=== PATIENT | male | born 1985 | race Caucasian/White ===

== ENCOUNTER 2020-05-15 09:22 | Emergency (ER) | payer SELFPAY ==
--- NOTE | 2020-05-15 09:45 | ED.UPPEXIN ---
HPI - Extremity Injury (Upper) General Stated Complaint: cough/headache/nausea Source: patient Mode of arrival: ambulatory Limitations: no limitations History of Present Illness HPI narrative: Patient is a 34-year-old male who presents complaining of cough, congestion, rhinorrhea, headache and nausea x3 to 4 days. Patient reports he lives with his aunt, who was diagnosed with Covid yesterday. Patient reports he just recently moved to the area and does not have PCP. He denies chest pain, shortness of breath or fever. He denies taking any [id number] medications for symptom relief. Related Data Home Medications Medication Instructions Recorded Confirmed No Home Medications 05/15/20 05/15/20 Allergies Allergy/AdvReac Type Severity Reaction Status Date / Time No Known Allergies Allergy Mild Verified 05/15/20 09:52 Review of Systems Review of Systems: Narrative: CONSTITUTIONAL: Denies fever, chills, or sweats. EYES: Denies visual changes, redness, or discharge. ENT: Denies rhinorrhea, sore throat, or otalgia. Reports congestion CARDIOVASCULAR: Denies chest pain, palpitations, or edema. RESPIRATORY: Reports cough, denies dyspnea. GASTROINTESTINAL: Denies abdominal pain, nausea, vomiting, or diarrhea. GENITOURINARY: Denies dysuria or hematuria. SKIN: Denies rash or itching. MUSCULOSKELETAL: Denies back pain, joint pain, or myalgia. NEUROLOGIC: Denies headache, numbness, dizziness, or weakness. PSYCHIATRIC: Denies anxiety or depression. PMFSH Past Medical History Medical History No significant past medical history Surgical History Surgical History No significant past surgical history Family History Family History Other Heart disease Social History Social History Smoking status: Current every day smoker Tobacco type: cigarettes Alcohol intake: current Alcohol use details: Occasional Substance use: current Substance use type: marijuana Living arrangements: with family Occupation/Education: occupation Exam Narrative: Exam Narrative: GENERAL: Well-appearing, well-nourished, and in no acute distress. HEAD: Normocephalic, atraumatic. EYES: No redness or drainage. ENT: Mucous membranes pink and moist. CHEST: No respiratory distress. Clear to auscultation. HEART: Regular rate and rhythm. No murmur appreciated. Normal peripheral pulses. EXTREMITIES: Normal range of motion. SKIN: Warm, dry, no rash. NEURO: No focal deficits. Alert and oriented x3. Gait steady. PSYCH: Normal affect. No signs of depression or anxiety. MDM - Extremity Injury (Upper) MDM Narrative Medical decision making narrative: Patient is positive exposure with an in household family member to Covid. Patient to be sent for Covid testing. Patient is aware of the need of quarantine until testing completed. Patient agrees with plan of care. Patient is stable for discharge home with outpatient follow-up as needed. Differential Diagnosis Differential diagnosis: Likely other (Upper respiratory infection, Covid) Critical Care Time Critical Care Time Critical Care Time: No Discharge Plan Discharge Clinical Impression: Close exposure to COVID-19 virus URI (upper respiratory infection) Qualifiers: URI type: unspecified viral URI Qualified Code(s): J06.9 - Acute upper respiratory infection, unspecified Patient Disposition: Home, Self-Care Condition: Stable Instructions: Droplet Precautions (ED), COVID-19 (Coronavirus Disease 2019) (ED), COVID-19: Slow the Coronavirus Spread (ED), Face Coverings (Masks) and COVID-19 (ED) Additional Instructions: You have an referred for Covid testing. Someone will call you within 24 hours to set up testing time. Please quarantine until Covid testing a
[2020-05-15 09:49] VITALS: BP 123/95; PULSE 65; RESP 16; TEMP 36.6; O2SAT 96
== END 2020-05-15 10:00 | disposition home or self-care (01) ==
PROVIDERS: Emergency Provider Nurse Practitioner
DX: Z20.828 Contact with and (suspected) exposure to other viral communicable diseases (principal); J06.9 Acute upper respiratory infection, unspecified; F17.210 Nicotine dependence, cigarettes, uncomplicated
CPT/HCPCS: 99211; G0463